=== PATIENT | female | born 1945 | race Caucasian/White ===

== ENCOUNTER 2016-08-22 06:05 | Day surgery (SDC) | payer MEDICARE, OTHER ==
--- NOTE | ~2016-08-22 | EGD ---
EGD REPORT [facility] [address] [address] NAME: ASHLEY THURMAN : 49 STATUS : REG [facility] PAT#: [id number] AGE: 71 ADM/REG DATE : 08/22/16 MR#: [id number] REPORT SERV DATE: 08/22/16 DICTATED BY: TAMARA ALEGRIA DATE: 08/22/16 REPORT STATUS : Draft TRANSCRIBED BY: [facility] DATE: 08/22/16 Endoscopy Center Patient Name: Ashley Thurman Date of : 1945 Attending MD: TAMARA ALEGRIA, Procedure Date No Time: 08/22/2016 Procedure: Upper GI endoscopy Indications: Esophageal reflux Referring MD: RALPH OSBORN MD Medicines: Monitored Anesthesia Care Complications: No immediate complications. Estimated blood loss: None. Procedure: Pre-Anesthesia Assessment: - ASA Grade Assessment: II - A patient with mild systemic disease. After obtaining informed consent, the endoscope was passed under direct vision. Throughout the procedure, the patient's blood pressure, pulse, and oxygen saturations were monitored continuously. The GIF [id number] was introduced through the mouth, and advanced to the second part of duodenum. The upper GI endoscopy was accomplished without difficulty. The patient tolerated the procedure well. Findings: The esophagus was normal. A 4 cm hiatus hernia was present. The exam of the stomach was otherwise normal. The cardia and gastric fundus were normal on retroflexion. The duodenal bulb was normal. A few erosions without bleeding were found in the second part of the duodenum. Biopsies were taken with a cold forceps for histology. Verification of patient identification for the specimen was done. Estimated blood loss was minimal. Impression: - Normal esophagus. - Hiatus hernia. - Normal duodenal bulb. - Duodenal erosions without bleeding. Biopsied. Recommendation: - Patient has a contact number available for emergencies. The signs and symptoms of potential delayed complications were discussed with the patient. Return to normal activities tomorrow. Written discharge instructions were provided to the patient. - Return to previous diet. EGD REPORT [address] [address] NAME: ASHLEY THURMAN : [birth year] STATUS : REG [facility] PAT#: [id number] AGE: 71 ADM/REG DATE : 08/22/16 MR#: [id number] REPORT SERV DATE: 08/22/16 DICTATED BY: TAMARA ALEGRIA DATE: 08/22/16 REPORT STATUS : Draft TRANSCRIBED BY: [employer] DATE: 08/22/16 - Continue present medications. - Await pathology results. - Continue PPI. - Return to GI clinic in 8 weeks. Procedure Code(s): --- Professional --- 83949, Esophagogastroduodenoscopy, flexible, transoral; with biopsy, single or multiple Diagnosis Code(s): --- Professional --- K44.9, Diaphragmatic hernia without obstruction or gangrene K26.9, Duodenal ulcer, unspecified as acute or chronic, without hemorrhage or perforation K21.9, Gastro-esophageal reflux disease without esophagitis CPT copyright 2013 [employer]. All rights reserved. The codes documented in this report are preliminary and upon limousine driver review may be revised to meet current compliance requirements. TAMARA ALEGRAI, 08/22/2016 7:56 AM Number of Addenda: 0 Note Initiated On: 08/22/2016 7:33 AM Scope Withdrawal Time 0 hours 0 minutes 0 seconds [address] [place] [address]
[~2016-08-22 06:05] MED LIST: 8 HOUR650 MG PO; D 5000 PO; FLEX PO; FLUOCINOLONE; MULTIPLE VIT PO; PRILOSEC40 MG PO; RANITIDINE300 MG PO; [UNRECOGNIZED DRUG - OTHER] PO
== END 2016-08-22 23:59 | disposition home health service (06) ==
LOC: DMU 06:05
PROVIDERS: Internal Medicine Gastroenterology
PROC: 0DB98ZX Excision of Duodenum, Via Natural or Artificial Opening Endoscopic, Diagnostic (ICD-10-PCS; principal; 2016-08-22 07:30)
DX: K29.80 Duodenitis without bleeding (principal); E78.00 Pure hypercholesterolemia, unspecified; K21.9 Gastro-esophageal reflux disease without esophagitis; K44.9 Diaphragmatic hernia without obstruction or gangrene; K26.9 Duodenal ulcer, unspecified as acute or chronic, without hemorrhage or perforation; Z88.2 Allergy status to sulfonamides; Z88.1 Allergy status to other antibiotic agents; Z88.8 Allergy status to other drugs, medicaments and biological substances
CPT/HCPCS: 88305